=== PATIENT | male | born 2000 | race Two or more races ===

== ENCOUNTER 2023-08-02 21:09 | Emergency (ER) | payer OTHER | END 2023-08-02 23:22 | disposition home or self-care (01) | LOC: JD.ED 21:09 | DX: S83.401A Sprain of unspecified collateral ligament of right knee, initial encounter (principal); X50.0XXA Overexertion from strenuous movement or load, initial encounter; Y93.89 Activity, other specified | CPT/HCPCS: 73562-26-RT; 73562-RT; 99282; 99283 ==